=== PATIENT | female | born 1955 | race Caucasian/White ===

== ENCOUNTER 2023-05-12 10:04 | Emergency (ER) | payer MEDICARE, BC, SELFPAY ==
[2023-05-12 10:12] VITALS: BP 153/85; PULSE 84; RESP 18; TEMP 36.2; O2SAT 97; BMI 31.1
--- NOTE | 2023-05-12 10:35 | ED.GENADULT ---
HPI - General Adult General Time Seen by Provider: 10:35 Date Seen: 05/12/23 Chief complaint: Back Injury/Pain Stated complaint: back pain Time Seen by Provider: 05/12/23 10:22 Source: patient Mode of arrival: ambulatory Limitations: physical limitation History of Present Illness HPI narrative: Patient is a 67 year white female who about 6 days ago was bending down to put a lesion on her dog and felt a strain in her left low back. She was doing okay for couple days now it has been worse the last couple of days. She has been putting a heat pack on it, and with the hot temperatures and using some ibuprofen she has had some upset stomach. No chest pain, no breathing problem, no anterior abdominal pain, no dysuria frequency constipation or diarrhea. Related Data Home Medications Medication Instructions Recorded Confirmed atorvastatin 20 mg tablet 20 mg PO DAILY 05/12/23 05/12/23 bupropion HCl 150 mg 24 hr tablet, 450 mg PO DAILY 05/12/23 05/12/23 extended release citalopram 20 mg tablet 20 mg PO DAILY 05/12/23 05/12/23 loratadine 10 mg tablet (Allergy 10 mg PO DAILY 05/12/23 05/12/23 Relief (loratadine)) omeprazole 20 mg capsule,delayed 20 mg PO DAILY 05/12/23 05/12/23 release Previous Rx's Medication Instructions Recorded prednisone 20 mg tablet 20 mg PO BID #10 tabs 05/12/23 Allergies Allergy/AdvReac Type Severity Reaction Status Date / Time codeine Allergy Vomiting Verified 05/12/23 10:19 erythromycin base Allergy Vomiting Verified 05/12/23 10:19 Sulfa (Sulfonamide Allergy Verified 05/12/23 10:19 Antibiotics) Review of Systems Status of ROS: Reports: 6 or more systems reviewed and unremarkable except as noted in History and below Narrative: Denies bowel or bladder symptoms, fever, chills, perineal numbness. Does report that the pain radiates a little bit around her right hip to her thigh anterolaterally PFSH PFS Social History Smoking Status: Never smoker Do you use any of these nicotine containing products: None Second hand tobacco smoke exposure: No How often do you have a drink containing alcohol: never How often do you have six or more drinks on one occasion: Never AUDIT-C Alcohol total score: 0 Non-prescribed substance use: denies use Exam Narrative: Exam Narrative: Objective: Vital signs unremarkable in elevated blood pressure In general no apparent distress HEENT unremarkable Neurologic no extremities is unremarkable normal strength sensation, negative straight leg raise to about 80? bilaterally in the lower extremities, no swelling or edema of the lower extremities normal sensation. Back exam shows no tenderness or warmth erythema but she points to her paravertebral muscles along the right lumbosacral area Const: Vital Signs, click to edit/add: Vital Signs - 24 hr 05/12/23 10:12 05/12/23 10:55 Temperature 97.2 F L 97.2 F L Pulse Rate [Pulse Oximeter] 84 84 Respiratory Rate 18 18 Blood Pressure [Ri ght Upper Arm] 153/85 H 153/85 H Pulse Oximetry 97 Oxygen Delivery Me thod Room Air Course Vital Signs Vital signs: Initial Vital Signs Temperature 97.2 F L 05/12/23 10:12 Temperature Source Temporal Artery Scan 05/12/23 10:12 Pulse Rate 84 05/12/23 10:12 Respiratory Rate 18 05/12/23 10:12 Blood Pressure 153/85 H 05/12/23 10:12 Blood Pressure Mean 107 H 05/12/23 10:12 Blood Pressure Position Semi-Fowlers 05/12/23 10:12 Pulse Oximetry 97 05/12/23 10:12 Oxygen Delivery Method Room Air 05/12/23 10:12 Vital Signs Temperature 97.2 F L 05/12/23 10:12 Pulse Rate 84 05/12/23 10:12 Respiratory Rate 18 05/12/23 10:12 Blood Pressure 153/85 H 05/12/23 10:12 Pulse Oximetry 97 05/12/23 10:12 Oxygen Delivery Method Room Air 05/12/23 10:12 Temperature 97.2 F L 05/12/23 10:55 Pulse Rate 84 05/12/23 10:55 Respiratory Rate 18 05/12/23 10:55 Blood Pressure 153/85 H 05/12/23 10:55 Pulse Oximetry 97 05/12/23 10:12 Oxygen Delivery Method Room Air 05/12/23 10:12 Medical Decision Making [facility] Narrative Medical decision making narrative: [age] year white female with a back strain, with some mild radicular symptoms. At this point I think prednisone 50 mg orally be helpful. She has not tolerated narcotics in the past, and even NSAID is a bother his stomach she thinks would use Tylenol and preference right now, would give her a dose of prednisone now and then prednisone 20 mg b.i.d. x5 days to start tomorrow. May use Advil intermittently as needed. Ice the back only no heat, and recheck with primary care in the next 5-7 days. Return to ED sooner problems concerns or worsening. May need more advanced imaging if she continues to have problems. Discharge Plan Discharge Clinical Impression: Strain of lumbar region Patient Disposition: Home w/ Parent or Adult Condition: Stable Additional Instructions: Light activity, position of comfort, get up and move regularly, ice to the back 10-15 minutes 3 to 4 times a day for the next several days. Prednisone as prescribed. Tylenol to use in preference to Advil but may use Advil as needed. Her recheck with regular doc in the next few days, return to ED as needed. Activity Level: Light activity Discharge Diet: Regular Prescriptions: New prednisone 20 mg tablet 20 mg PO BID Qty: 10 0RF No Action atorvastatin 20 mg tablet 20 mg PO DAILY citalopram 20 mg tablet 20 mg PO DAILY bupropion HCl 150 mg tablet extended release 24 hr 450 mg PO DAILY omeprazole 20 mg capsule,delayed release(DR/EC) 20 mg PO DAILY loratadine [Allergy Relief (loratadine)] 10 mg tablet 10 mg PO DAILY Stand Alone Forms: [employer] Info Instructions
[2023-05-12] MEDS: predniSONE 10 MG TABLET 50 MG PO (10:50)
[2023-05-12 10:55] VITALS: BP 153/85; PULSE 84; RESP 18; TEMP 36.2
== END 2023-05-12 10:57 | disposition home or self-care (01) ==
PROVIDERS: Emergency Provider Family Medicine; PCP Family Medicine
DX: S39.012A Strain of muscle, fascia and tendon of lower back, initial encounter (principal); X50.1XXA Overexertion from prolonged static or awkward postures, initial encounter
CPT/HCPCS: 99283; J7512

== ENCOUNTER 2023-10-06 12:31 | Emergency (ER) | payer MEDICARE, BC, SELFPAY ==
[2023-10-06 13:01] VITALS: BP 137/103; PULSE 105; RESP 16; TEMP 36.7; O2SAT 96; BMI 31.1
--- NOTE | 2023-10-06 14:38 | ED.NURSE ---
pt left without being seen
== END 2023-10-06 14:40 | disposition left against medical advice (07) ==
PROVIDERS: Emergency Provider Emergency Medicine Emergency Medical Services; PCP Family Medicine
DX: Z53.21 Procedure and treatment not carried out due to patient leaving prior to being seen by health care provider (principal)